=== PATIENT | female | born 1960 | race Caucasian/White ===

== ENCOUNTER → 2018-11-20 11:42 | Outpatient (CLI) | payer OTHER, SELFPAY ==
--- NOTE | 2018-11-20 | DI.US.S_ITS ---
PROCEDURE: US PELVIC COMPLETE INDICATIONS: Unspecified dyspareunia TECHNIQUE: Real-time scanning was performed of the pelvic organs, with image documentation. Additional endovaginal scanning was necessary due to incomplete visualization of the adnexal and endometrial structures by transabdominal scanning. COMPARISON: [facility], , PELVIC COMPLETE, 11/14/2016, 13:33. FINDINGS: Transabdominal scanning: Limited scanning through the kidneys shows no hydronephrosis. No pathologic free abdominal or pelvic fluid. Endovaginal scanning: Uterus: Uterus is normal in size at 6.2 x 3.0 x 4.6 cm. The endometrium measures 1.5 mm in combined thickness. Ovaries: Normal ovaries bilaterally measuring 2.3 x 0.9 x 1.5 cm on the right and 2.1 x 1.2 x 1.5 cm on the left. No adnexal masses seen. Limited assessment of the urinary bladder demonstrates bladder wall trabeculations. IMPRESSION: Urinary bladder wall trabeculations identified, otherwise no source for pelvic pain is seen. Dictated by: Rodri HIGGINS Interpreted: Earnest Ortiz MD on 11/20/2018 at 15:33 Approved by: Earnest Ortiz M.D. on 11/20/2018 at 17:54
== END ==
PROVIDERS: PCP Family Medicine; Visit Provider Family Medicine
DX: N94.10 Unspecified dyspareunia (principal); N32.89 Other specified disorders of bladder
CPT/HCPCS: 76830; 76856

== ENCOUNTER → 2020-01-14 13:53 | Outpatient (CLI) | payer OTHER, SELFPAY ==
[2020-01-15 08:23] LABS: COVID19 Sendout Not Detected (Not Detect)
== END ==
PROVIDERS: PCP Family Medicine; Visit Provider Physician Assistant
DX: J02.9 Acute pharyngitis, unspecified (principal)
CPT/HCPCS: 87070; 87635

== ENCOUNTER → 2020-01-14 14:24 | Outpatient (CLI) | payer OTHER, SELFPAY ==
--- NOTE | 2020-01-14 14:26 | DI.RAD.S_ITS ---
PROCEDURE: XR SOFT TISSUE NECK INDICATIONS: possible foreign body-fish bone TECHNIQUE: 2 views of the neck were acquired. COMPARISON: None. FINDINGS: Airway: The airway appears patent. Soft tissues: A linear hyperdensity at the base of the epiglottis/vallecular could represent small foreign body. Prevertebral soft tissues are normal in thickness. The epiglottis and aryepiglottic folds appear normal. No soft tissue gas. Bones: No suspicious bony lesions. Visualized cervical spine is normally aligned. IMPRESSION: Possible foreign body at the base of the epiglottis/vallecula. Dictated by: uLis Bojorquez M.D. on 01/14/2020 at 15:32 Approved by: Luis Bojorquez M.D. on 01/14/2020 at 15:37
== END ==
PROVIDERS: PCP Family Medicine; Referring Provider Physician Assistant; Visit Provider Physician Assistant
DX: J02.9 Acute pharyngitis, unspecified (principal); R13.10 Dysphagia, unspecified
CPT/HCPCS: 70360; 87070; 87635

== ENCOUNTER 2020-04-28 13:00 | Outpatient (RCR) | payer OTHER, SELFPAY ==
--- NOTE | 2020-04-22 17:32 | PT.OIE ---
Current Diagnoses Other chronic pain (04/28/20) Past Surgical History Status post appendectomy Status post delivery Status post delivery Status post delivery Status post dilation and curettage Status post laparoscopy Visit Care Team Role Provider Type Other Providers Referring Provider Specialty: Address: Phone: Fax: Email: Salima Tran MD Attending Provider Physician Primary Care Provider Specialty: Family Practice Address: [address] [place] [address], [id number] Email: Physical Therapy Initial Evaluation PT-OP-A Visit Information Start: 04/22/20 13:59 Freq: Status: Active Protocol: Document 04/22/20 14:00 [facility] (Rec: 04/22/20 14:08 [facility] [email or web address]) Out-Patient Physical Therapy Visit Information Visit Information Visit Type Initial Evaluation Visit Start Time 12:15 Visit Stop Time 01:00 Total Visit Minutes 45 Visit Number 1 Evaluation Information Evaluation Date 04/22/20 PT-OP-B Current Condition Start: 04/22/20 13:59 Freq: Status: Active Protocol: Document 04/22/20 14:00 [facility] (Rec: 04/22/20 14:08 [facility] [email or web address]) Current Condition History of Current Condition Onset Date 2016 Current Complaints urinary incontinence, abdominal and pelvic pain, pelvic pressure and heavin History of Current Condition Jessy is a 59 year old female who presents to physical therapy today with symptoms of urinary incontinence and pelvic pain. She notes her symptosm have worsed since she was sick and hospitalized in 2017. Since then she has felt much weaker in her core and feels this contributes to her Low back pain. She has a history of 3 C-sections and she feels that she has scar tissue that is limiting her. She will often feel radiating pain shoot across her pelvis. Jessy describes a constant urge to void and c/o pelvic pressure expecially with standing Treatment Goals Patient/Caregiver Goals Jessy reports her goals are to gain strengh of her core so that she can continue to be active and decrease her urinary leakage. Prior Functional Status Baseline Function- ADL's Independent Baseline Function- Mobility Independent Current Functional Impairments (Reported) Functional Limitations- ADL's bending and lifting activities increase leakage and pain, she has pain laying on her left side. Functional Limitations- Recreation/ Jessy is limited in long car Hobbies drives, she has difficulty exercising due to pain PT-OP-C Subjective Start: 04/22/20 13:59 Freq: Status: Active Protocol: Document 04/22/20 17:01 [facility] (Rec: 04/28/20 17:03 [facility] [email or web address]) Patient Questionnaires Pelvic Pain and Urgency/Frequency Patient Symptom Scale Pelvic Pain Score 11 OP-PT Pain Assessment Pain Assessment Grid Paper Pain Assessment Grid Completed Yes Location abdominal pain Pain Location Details abdominal pain Intensity 6 Scale Used Numeric (0 - 10) Description Radiating,Sharp,Shooting PT-OP-I Pelvic Floor Start: 04/22/20 13:59 Freq: Status: Active Protocol: Document 04/22/20 17:04 [facility] (Rec: 04/28/20 17:16 [facility] [email or web address]) Pelvic Floor Assessment Urine Urinary Symptoms Urge Sensation,Incomplete Emptying Other Urinary Symptoms urinary leakage when going from sitting to standing Leakage Size Medium Leakage Cause Cough,Exercise,Lifting,Sneeze, Urge Leaks Per Day 2 per week Voiding Frequency 6 Nocturia 0-1 Pads Used In 24 Hours 1-2 Urine Pad Type Panty Liner Pelvic Clock Pelvic Clock 12-3 Atrophy Pelvic Clock 3-6 Atrophy Contraction Ability Voluntary Contraction Weak Voluntary Relaxation Weak Manual Muscle Testing Left 2 Manual Muscle Testing Right 2 Manual Muscle Testing Anterior 1 Manual Muscle Testing Posterior 4 Muscle Endurance (Seconds) 6 Comments Pelvic Floor Comments Jessy has left sided pain to palpation over the levator ani , she has difficulty relaxing her pelvic floor following a contraction. PT-OP-K Range of Motion Start: 04/28/20 17:16 Freq: Status: Active Protocol: Document 04/22/20 17:17 [facility] (Rec: 04/28/20 17:18 [facility] [email or web address]) Hip Goniometric Range of Motion Hip ROM Limitations Hip ROM Limitations Soft Tissue Tightness Comments iliopsoas tightness bilaterally left greater than right, ROM limited in hip ER with pain at end range ER B, tightness of the piriformis and obturator internus PT-OP-M Strength Start: 04/22/20 13:59 Freq: Status: Active Protocol: Document 04/22/20 17:04 [facility] (Rec: 04/28/20 17:16 [facility] [email or web address]) Trunk Strength Trunk Manual Muscle Testing Flexion 3 Fair Core Stabilization decreased strength of the transverse abdominal muscle with decreased ability to facilitate muscle contraction Hip Strength Hip Manual Muscle Testing Right Abduction 4 Good External Rotation 4 Good Left Abduction 4 Good External Rotation 4 Good PT-OP-Q Treatments Start: 04/22/20 13:59 Freq: Status: Active Protocol: Document 04/22/20 14:09 [facility] (Rec: 04/22/20 14:10 [facility] [email or web address]) Therapeutic Exercises Supine Exercises roll outs with theraband Supine Exercise Name hip rollouts with theraband Side bilateral Reps/Minutes 3 x 10 reps iliopsoas stretch Supine Exercise Name iliopsoas stretch in karoline test position Side bilateral Reps/Minutes hold 1-2 min single knee to chest stretch Supine Exercise Name single knee to chest stretch Side bilateral Reps/Minutes hold x 30 seconds B Self-Care/Home Management Treatment Education Patient Education Home Exercise Program Other Education pt was instructed in gentle scar tissue massage over the abdominal wall PT-OP-T Assessment and Plan Start: 04/22/20 13:59 Freq: Status: Active Protocol: Document 04/22/20 17:19 [facility] (Rec: 04/28/20 17:32 [facility] [email or web address]) Physical Therapy Assessment Rehab Potential Rehabilitation Potential Good Evaluation Complexity Number of Personal Factors/Comorbidities 0 Number of Body Systems Impaired 1-2 Clinical Presentation at Evaluation Stable Impairments Impairments Activity Tolerance,Functional Activities,Posture,ROM,Soft Tissue Mobility,Strength Other Impairments urinary stress and urge incontinence Goals urinary leakage with sit to stand Impairment urinary leakage with sit to stand activitiy [employer] Goal (LTG) Jessy is able to brace with her pelvic floor prior to standing and is no longer leaking with functional activities LTG Duration 8 weeks core weakness Impairment core weakness with decreased strength of the pelvic floor/ transverse abdom Short Term Goal (STG) Jessy is given a home program for pelvic floor and transverse abdominal strengtheing STG Duration 4 weeks [facility] Goal (LTG) Jessy is able to sustain both a pelvic floor contraction as well a a transverse abdominal contraction for 10 seconds each LTG Duration 8 weeks One Impairment abdominal pain rated 6/10 that radiates across the pelvis [facility] Goal (LTG) With manual therapy and stretching for the abdominal wall Jessy reports a overall reduction with abdominal pain from 6/10 to 1-2/10 Assessment Summary Assessment Jessy is a 59 year old female presenting to PT today with chronic abdominal pain and weakness. She feels her abdominal pain initially began after her 3 deliveries. However in 2017 she was hospitalized for period of time and became very week. She notes it was after this time that her core strength further decreased. She feels she has scar tissue restrictions across her abdominal wall. Her goal is to be able to strenghen her core and help her low back by decreasing pain. Jessy also reports symptoms of urinary incotntinence with both urgency and stress incontinence. With examination today Jessy is very limited with her hip flexor length L>R. She has pain with full hip ER B. With internal pelvic floor examination she is weak in the anterior and lateral talamantes of the levator ani. She has pain on the left side following a contraction. She is tender to palpation at the obturator internus B. I started Jessy today with stretches for her iliopsoas as well as transverse abdmonial and pelvic floor activation. She tolerated this well. She is a good candidate for PT Physical Therapy Plan Frequency and Duration Frequency of Treatment 1x/Week Duration of Treatment 8 Plan of Care Start Date 04/22/20 Plan of Care End Date 06/17/20 Therapeutic Interventions Therapeutic Interventions Home Exercise Program,Manual Therapy,Neuromuscular Re- education,Patient/Caregiver Education,Self-Care/Home Management,Soft Tissue Mobilization,Therapeutic Exercises Modalities Biofeedback Next Visit Focus/Plan Next Note Type Treatment Note Next Visit Plan Review stretches and ther ex given today and begin EMG biofeedback next visit
--- NOTE | 2020-04-28 17:33 | PT.OPPOC ---
Physical, Occupational & Speech Therapy At [facility] Current Diagnoses Other chronic pain (04/28/20) Visit Care Team Role Provider Type Other Providers Referring Provider Specialty: Address: Phone: Fax: Email: Salima Tran MD Attending Provider Physician Primary Care Provider Specialty: Family Practice Address: [address] [place] [address], [id number] Email: Plan Of Care PT-OP-T Assessment and Plan Start: 04/22/20 13:59 Freq: Status: Active Protocol: Document 04/22/20 17:19 [facility] (Rec: 04/28/20 17:32 [facility] [email or web address]) Physical Therapy Assessment Rehab Potential Rehabilitation Potential Good Evaluation Complexity Number of Personal Factors/Comorbidities 0 Number of Body Systems Impaired 1-2 Clinical Presentation at Evaluation Stable Impairments Impairments Activity Tolerance,Functional Activities,Posture,ROM,Soft Tissue Mobility,Strength Other Impairments urinary stress and urge incontinence Goals urinary leakage with sit to stand Impairment urinary leakage with sit to stand activity [employer] Goal (LTG) Jessy is able to brace with her pelvic floor prior to standing and is no longer leaking with functional activities LTG Duration 8 weeks core weakness Impairment core weakness with decreased strength of the pelvic floor/ transverse abdominal muscles Short Term Goal (STG) Jessy is given a home program for pelvic floor and transverse abdominal strengthening STG Duration 4 weeks [employer] Goal (LTG) Jessy is able to sustain both a pelvic floor contraction as well a a transverse abdominal contraction for 10 seconds each LTG Duration 8 weeks One Impairment abdominal pain rated 6/10 that radiates across the pelvis [employer] Goal (LTG) With manual therapy and stretching for the abdominal wall Jessy reports a overall reduction with abdominal pain from 6/10 to 1-2/10 Assessment Summary Assessment Jessy is a 59 year old female presenting to PT today with chronic abdominal pain and weakness. She feels her abdominal pain initially began after her 3 deliveries. However in 2017 she was hospitalized for period of time and became very week. She notes it was after this time that her core strength further decreased. She feels she has scar tissue restrictions across her abdominal wall. Her goal is to be able to strengthen her core and help her low back by decreasing pain. Jessy also reports symptoms of urinary incontinence with both urgency and stress incontinence. With examination today Jessy is very limited with her hip flexor length L>R. She has pain with full hip ER B. With internal pelvic floor examination she is weak in the anterior and lateral talamantes of the levator ani. She has pain on the left side following a contraction. She is tender to palpation at the obturator internus B. I started Jessy today with stretches for her iliopsoas as well as transverse abdominal and pelvic floor activation. She tolerated this well. She is a good candidate for PT Physical Therapy Plan Frequency and Duration Frequency of Treatment 1x/Week Duration of Treatment 8 Plan of Care Start Date 04/22/20 Plan of Care End Date 06/17/20 Therapeutic Interventions Therapeutic Interventions Home Exercise Program,Manual Therapy,Neuromuscular Re- education,Patient/Caregiver Education,Self-Care/Home Management,Soft Tissue Mobilization,Therapeutic Exercises Modalities Biofeedback Next Visit Focus/Plan Next Note Type Treatment Note Next Visit Plan Review stretches and ther ex given today and begin EMG biofeedback next visit Plan of Care Dates Plan of Care Start Date 04/22/20 Plan of Care End Date 06/17/20 Electronically Signed by: Nahomy Camacho, PT 04/28/20 0822 Please Sign and Return: I have reviewed this Plan of Care and certify that the skilled therapy services above are required to meet the patient?s needs. Physician Signature Date Printed Name and Credentials Clinical Instructor Signature Printed Name and Credentials
--- NOTE | 2020-04-28 17:41 | PT.OTN ---
Current Diagnoses Other chronic pain (04/28/20) Physical Therapy Treatment Note PT-OP-A Visit Information Start: 04/22/20 13:59 Freq: Status: Active Protocol: Document 04/28/20 17:35 [facility] (Rec: 04/28/20 17:41 [facility] [email or web address]) Out-Patient Physical Therapy Visit Information Visit Information Visit Type Treatment Note Visit Start Time 13:00 Visit Stop Time 13:45 Total Visit Minutes 45 Visit Number 2 Evaluation Information Evaluation Date 04/22/20 PT-OP-B Current Condition Start: 04/22/20 13:59 Freq: Status: Active Protocol: Document 04/22/20 14:00 AMH (Rec: 04/22/20 14:08 [facility] [email or web address]) Current Condition History of Current Condition Onset Date 2016 Current Complaints urinary incontinence, abdominal and pelvic pain, pelvic pressure and heavin History of Current Condition Jessy is a 59 year old female who presents to physical therapy today with symptoms of urinary incontinence and pelvic pain. She notes her symptosm have worsed since she was sick and hospitalized in 2016. Since then she has felt much weaker in her core and feels this contributes to her Low back pain. She has a history of 3 C-sections and she feels that she has scar tissue that is limiting her. She will often feel radiating pain shoot across her pelvis. Jessy describes a constant urge to void and c/o pelvic pressure expecially with standing Treatment Goals Patient/Caregiver Goals Jessy reports her goals are to gain strengh of her core so that she can continue to be active and decrease her urinary leakage. Prior Functional Status Baseline Function- ADL's Independent Baseline Function- Mobility Independent Current Functional Impairments (Reported) Functional Limitations- ADL's bending and lifting activities increase leakage and pain, she has pain laying on her left side. Functional Limitations- Recreation/ Jessy is limited in long car Hobbies drives, she has difficulty exercising due to pain PT-OP-C Subjective Start: 04/22/20 13:59 Freq: Status: Active Protocol: Document 04/28/20 17:35 AM[facility] (Rec: 04/28/20 17:41 [facility] [email or web address]) OP-PT Subjective Patient Comments Patient Comments Jessy reports she has been doing the hip flexor stretches and she feels like they are really helping her. PT-OP-I Pelvic Floor Start: 04/22/20 13:59 Freq: Status: Active Protocol: Document 04/22/20 17:04 [facility] (Rec: 04/28/20 17:16 [facility] [email or web address]) Pelvic Floor Assessment Urine Urinary Symptoms Urge Sensation,Incomplete Emptying Other Urinary Symptoms urinary leakage when going from sitting to standing Leakage Size Medium Leakage Cause Cough,Exercise,Lifting,Sneeze, Urge Leaks Per Day 2 per week Voiding Frequency 6 Nocturia 0-1 Pads Used In 24 Hours 1-2 Urine Pad Type Panty Liner Pelvic Clock Pelvic Clock 12-3 Atrophy Pelvic Clock 3-6 Atrophy Contraction Ability Voluntary Contraction Weak Voluntary Relaxation Weak Manual Muscle Testing Left 2 Manual Muscle Testing Right 2 Manual Muscle Testing Anterior 1 Manual Muscle Testing Posterior 4 Muscle Endurance (Seconds) 6 Comments Pelvic Floor Comments Jessy has left sided pain to palpation over the levator ani , she has difficulty relaxing her pelvic floor following a contraction. PT-OP-K Range of Motion Start: 04/28/20 17:16 Freq: Status: Active Protocol: Document 04/22/20 17:17 [facility] (Rec: 04/28/20 17:18 [facility] [email or web address]) Hip Goniometric Range of Motion Hip ROM Limitations Hip ROM Limitations Soft Tissue Tightness Comments iliopsoas tightness bilaterally left greater than right, ROM limited in hip ER with pain at end range ER B, tightness of the piriformis and obturator internus PT-OP-M Strength Start: 04/22/20 13:59 Freq: Status: Active Protocol: Document 04/22/20 17:04 [facility] (Rec: 04/28/20 17:16 [facility] [email or web address]) Trunk Strength Trunk Manual Muscle Testing Flexion 3 Fair Core Stabilization decreased strength of the transverse abdominal muscle with decreased ability to facilitate muscle contraction Hip Strength Hip Manual Muscle Testing Right Abduction 4 Good External Rotation 4 Good Left Abduction 4 Good External Rotation 4 Good PT-OP-Q Treatments Start: 04/22/20 13:59 Freq: Status: Active Protocol: Document 04/28/20 17:35 [facility] (Rec: 04/28/20 17:41 [facility] [email or web address]) Therapeutic Exercises Supine Exercises ball squeeze with pelvic floor contraction Supine Exercise Name ball squeeze with pelvic floor contraction Reps/Minutes 10 reps x 5 sec hold roll outs with theraband Supine Exercise Name hip rollouts with theraband Side bilateral Reps/Minutes 3 x 10 reps iliopsoas stretch Supine Exercise Name iliopsoas stretch in karoline test position Side bilateral Reps/Minutes hold 1-2 min single knee to chest stretch Supine Exercise Name single knee to chest stretch Side bilateral Reps/Minutes hold x 30 seconds B Other Exercises quadruped cat cow Reps/Minutes x 10 quadruped TA Reps/Minutes x 10 reps Neuro Re-Education Treatment Other Activities EMG biofeedback Details EMG biofeedback for the pelvci floor neuro re-education Comments pt tolerated well, she demonstrated some muscle guarding and spasms initially but this did improve as she worked on contract relax 10 second hold and 10 second realxation PT-OP-T Assessment and Plan Start: 04/22/20 13:59 Freq: Status: Active Protocol: Document 04/28/20 17:35 [facility] (Rec: 04/28/20 17:41 [facility] [email or web address]) Physical Therapy Assessment Assessment Summary Assessment stretches are working well for Jessy, today we worked on core facilitation bot for TA adn pelvic floor. EMG biofeedback was initiated with average of 13.4 and resting tone of 2.7 max contraction of 47.8 Physical Therapy Plan Frequency and Duration Frequency of Treatment 1x/Week Duration of Treatment 8 Plan of Care Start Date 04/22/20 Plan of Care End Date 06/17/20 Therapeutic Interventions Therapeutic Interventions Home Exercise Program,Manual Therapy,Neuromuscular Re- education,Patient/Caregiver Education,Self-Care/Home Management,Soft Tissue Mobilization,Therapeutic Exercises Modalities Biofeedback Next Visit Focus/Plan Next Note Type Treatment Note Next Visit Plan Begin scar tissue massage over the abdomen and continue to progress strengthening.
--- NOTE | 2020-06-11 17:35 | PT.OPDS ---
Current Diagnoses Other chronic pain (04/28/20) Visit Care Team Role Provider Type Other Providers Referring Provider Specialty: Address: Phone: Fax: Email: Salima Tran MD Attending Provider Physician Primary Care Provider Specialty: Family Practice [place]: [place], [address] Email: Visit Number Visit Number 2 Discharge Summary PT-OP-B Current Condition Start: 04/22/20 13:59 Freq: Status: Active Protocol: Document 04/22/20 14:00 AMH (Rec: 04/22/20 14:08 AMH [email or web address]) Current Condition History of Current Condition Onset Date 2017 Current Complaints urinary incontinence, abdominal and pelvic pain, pelvic pressure and heavin History of Current Condition Jessy is a 59 year old female who presents to physical therapy today with symptoms of urinary incontinence and pelvic pain. She notes her symptosm have worsed since she was sick and hospitalized in 2017. Since then she has felt much weaker in her core and feels this contributes to her Low back pain. She has a history of 3 C-sections and she feels that she has scar tissue that is limiting her. She will often feel radiating pain shoot across her pelvis. Jessy describes a constant urge to void and c/o pelvic pressure expecially with standing Treatment Goals Patient/Caregiver Goals Jessy reports her goals are to gain strengh of her core so that she can continue to be active and decrease her urinary leakage. Prior Functional Status Baseline Function- ADL's Independent Baseline Function- Mobility Independent Current Functional Impairments (Reported) Functional Limitations- ADL's bending and lifting activities increase leakage and pain, she has pain laying on her left side. Functional Limitations- Recreation/ Jessy is limited in long car Hobbies drives, she has difficulty exercising due to pain PT-OP-C Subjective Start: 04/22/20 13:59 Freq: Status: Active Protocol: Document 04/28/20 17:35 AMH (Rec: 04/28/20 17:41 AMH [email or web address]) OP-PT Subjective Patient Comments Patient Comments Jessy reports she has been doing the hip flexor stretches and she feels like they are really helping her. PT-OP-I Pelvic Floor Start: 04/22/20 13:59 Freq: Status: Active Protocol: Document 04/22/20 17:04 AMH (Rec: 04/28/20 17:16 AMH [email or web address]) Pelvic Floor Assessment Urine Urinary Symptoms Urge Sensation,Incomplete Emptying Other Urinary Symptoms urinary leakage when going from sitting to standing Leakage Size Medium Leakage Cause Cough,Exercise,Lifting,Sneeze, Urge Leaks Per Day 2 per week Voiding Frequency 6 Nocturia 0-1 Pads Used In 24 Hours 1-2 Urine Pad Type Panty Liner Pelvic Clock Pelvic Clock 12-3 Atrophy Pelvic Clock 3-6 Atrophy Contraction Ability Voluntary Contraction Weak Voluntary Relaxation Weak Manual Muscle Testing Left 2 Manual Muscle Testing Right 2 Manual Muscle Testing Anterior 1 Manual Muscle Testing Posterior 4 Muscle Endurance (Seconds) 6 Comments Pelvic Floor Comments Jessy has left sided pain to palpation over the levator ani , she has difficulty relaxing her pelvic floor following a contraction. PT-OP-K Range of Motion Start: 04/28/20 17:16 Freq: Status: Active Protocol: Document 04/22/20 17:17 AMH (Rec: 04/28/20 17:18 AMH [email or web address]) Hip Goniometric Range of Motion Hip ROM Limitations Hip ROM Limitations Soft Tissue Tightness Comments iliopsoas tightness bilaterally left greater than right, ROM limited in hip ER with pain at end range ER B, tightness of the piriformis and obturator internus PT-OP-M Strength Start: 04/22/20 13:59 Freq: Status: Active Protocol: Document 04/22/20 17:04 AMH (Rec: 04/28/20 17:16 AMH [email or web address]) Trunk Strength Trunk Manual Muscle Testing Flexion 3 Fair Core Stabilization decreased strength of the transverse abdominal muscle with decreased ability to facilitate muscle contraction Hip Strength Hip Manual Muscle Testing Right Abduction 4 Good External Rotation 4 Good Left Abduction 4 Good External Rotation 4 Good PT-OP-T Assessment and Plan Start: 04/22/20 13:59 Freq: Status: Active Protocol: Document 06/11/20 17:34 AMH (Rec: 06/11/20 17:35 AMH [email or web address]) Physical Therapy Assessment Progress Towards Goals Progress Comments Jessy has no showed for her appointment 3 visits in a row. A message was left for her on her voicemail at home. She will be discharged at this time Assessment Summary Assessment DC PT due to no show the last 3 visits Physical Therapy Plan Discharge Physical Therapy Discharge Reasons No Longer Attending PT Discharge Comments pt not showing up for her scheduled visits
== END 2020-10-19 12:07 ==
LOC: PHYS 13:00
PROVIDERS: PCP Family Medicine; Visit Provider Family Medicine
DX: G89.29 Other chronic pain (principal)
CPT/HCPCS: 97110; 97112; 97161

== ENCOUNTER 2021-01-18 10:31 | Emergency (ER) | payer OTHER, SELFPAY ==
[2021-01-18 10:35] VITALS: BP 121/82; PULSE 73; RESP 14; TEMP 36.2; O2SAT 97
--- NOTE | 2021-01-18 10:40 | DI.RAD.S_ITS ---
PROCEDURE: XR CHEST 1V INDICATIONS: chest pain TECHNIQUE: One view of the chest was acquired. COMPARISON: [facility], CR, CHEST 1 VIEW, 03/05/2016, 12:44. [facility], CT, THORAX WITH CONTRAST, 03/24/2016, 12:23. [facility], CT, PE STUDY (CTA CHEST), 09/12/2016, 18:58. FINDINGS: Surgical changes and devices: None. Lungs and pleura: There are embolization coils in both lower lobes. Lungs are clear. No pleural effusions or pneumothorax. Mediastinum: Mediastinal contours appear normal. Heart size is normal. Bones and chest wall: No suspicious bony lesions. Overlying soft tissues appear unremarkable. IMPRESSION: No acute cardiopulmonary disease. Dictated by: Luis Bojorquez M.D. on 01/18/2021 at 10:58 Approved by: Luis Bojorquez M.D. on 01/18/2021 at 11:01
[2021-01-18 11:03] VITALS: PULSE 72; RESP 18; O2SAT 97
[2021-01-18 11:06] LABS: Add Manual Diff / Slide Review NO; Basophils Absolute Auto 0 /uL (0-100); Basophils Percent Auto 0.8 % (0-2); Eosinophils Absolute Auto 100 /uL (0-450); Hematocrit 39.8 % (36-46); Hemoglobin 13.1 g/dL (12.0-16.0); Lymphocytes Absolute Auto 1800 /uL (1100-4500); Lymphocytes Percent Auto 29.6 % (25-40); Mean Corpuscular Hemoglobin 30.8 PG (26-34); Mean Corpuscular Volume 93.3 fL (80-100); Monocytes Absolute Auto 300 /uL (0-900); Monocytes Percent Auto 5.7 % (3-14); Neutrophils Absolute Auto 3800 /uL (1500-7000); Neutrophils Percent Auto 62.9 % (50-75); Platelet Count 232 X10^3/uL (150-400); Red Blood Cell Count 4.27 X10^6/uL (4.0-5.2); Red Cell Distribution Width 13.2 % (11.6-14.8); White Blood Cell Count 6.1 X10^3/uL (4.5-11.0)
[2021-01-18 11:13] LABS: Alanine Aminotransferase 18 IU/L (<35); Albumin 3.9 g/dL (3.5-5.0); Albumin Globulin Ratio 1.3 (1.0-2.8); Alkaline Phosphatase 71 U/L (38-126); Aspartate Aminotransferase 22 IU/L (14-36); BUN Creatinine Ratio 18.6 (6-22); Bilirubin Total 0.6 mg/dL (0.2-1.3); Blood Urea Nitrogen 11 mg/dL (7-17); Calcium 9.1 mg/dL (8.4-10.2); Carbon Dioxide 26 mmol/L (22-32); Chloride 107 mmol/L (98-107); Creatine Kinase 30 U/L (30-135); Estimated Glomerular Filt Rate > 60.0 mL/min (>60); Glucose 125 mg/dL (70-100); HEMOLYSIS < 15 (0-50); Lipase 84 U/L (23-300); Magnesium 2.2 mg/dL (1.6-2.3); Potassium 4.3 mmol/L (3.4-5.1); Sodium 137 mmol/L (137-145); Total Protein 6.9 g/dL (6.3-8.2)
[2021-01-18 11:24] LABS: Troponin I < 0.012 ng/mL (0.01-0.034)
[2021-01-18 11:30] VITALS: PULSE 71; RESP 18; O2SAT 95
[2021-01-18 12:00] VITALS: PULSE 71; RESP 18; O2SAT 95
[2021-01-18 12:30] VITALS: BP 99/61; PULSE 70; RESP 31; O2SAT 97
--- NOTE | 2021-01-18 12:36 | ED_ITS ---
HPI - Chest Pain General Chief Complaint: Chest Pain Stated Complaint: radiating pain, tinges in arm, chest pain Time Seen by Provider: 01/18/21 12:04 Source: patient Mode of arrival: Ambulatory Limitations: no limitations History of Present Illness HPI narrative: patient is a 60-year-old female who is presenting with right- sided chest pain ongoing for the last couple of days. Her every time she clean stretches moves his sometimes breeze. It did start in her back and is now coming around have her front is in her breast. Initially worried about breast cancer. she denies any shortness of breath. She took some Advil or Aleve he did not have any relief with that. No prior history of coronary artery disease. Onset (ago): day(s) Pain location: right chest Relieving factors: movement and rest Exacerbating factors: movement Related Data Home Medications Medication Instructions Recorded Confirmed estradiol 0.05 mg/24 hr weekly 1 patch TOPICAL WEEKLY 01/18/21 01/18/21 transdermal patch Allergies Allergy/AdvReac Type Severity Reaction Status Date / Time sulfamethoxazole AdvReac Severe Passout, Verified 01/18/21 10:40 [From Bactrim] memory issues. trimethoprim [From Bactrim] AdvReac Severe Passout, Verified 01/18/21 10:40 memory issues. Review of Systems Review of Systems Narrative: GENERAL: Denies chills, fatigue, malaise, fever, sweats, travel HEENT: Denies sinus pain, ear pain, sore throat, difficulty swallowing, neck pain RESPIRATORY: Denies dyspnea, cough, wheezing, hemoptysis, sputum. CARDIOVASCULAR: See HPI GASTROINTESTINAL: Denies nausea, vomiting, abdominal pain, diarrhea, constipation, melena. : Denies dysuria, frequency, incontinence, hematuria, urinary retention, flank pain. MUSCULOSKELETAL: Denies weakness, joint pain, or bony pain SKIN: No rash, no erythema, no pruritus NEUROLOGIC: Denies weakness, dizziness, headache, numbness, change in speech, confusion PSYCHIATRIC: No concerning psychosocial issues. 12 point review of systems is negative except for those stated above and HPI Patient History Surgical History (Updated 10/31/17 @ 06:04 by Conversion Provider) Status post appendectomy Status post delivery Status post delivery Status post delivery Status post dilation and curettage Status post laparoscopy Family History (Updated 05/18/15 @ 00:00 by Conversion Provider) Mother Cancer Diabetes mellitus Heart disease Hypertension Mental health problem Stroke Social History Smoking Status: Never smoker Smoking Status: Never smoker alcohol intake frequency: 0-2 drinks per day Substance Use Type: marijuana Exam Initial Vital Signs Initial Vital Signs: Vital Signs Temperature 97.1 F L 01/18/21 10:35 Pulse Rate 73 01/18/21 10:35 Respiratory Rate 14 01/18/21 10:35 Blood Pressure 121/82 01/18/21 10:35 Pulse Oximetry 97 01/18/21 10:35 GENERAL: alert well-appearing 60-year-old female HEENT: Head atraumatic,EOMI, pupils reactive, face symmetric, [moist] mucous membranes CARDIOVASCULAR: Regular rate and rhythm without murmurs, rubs or gallops. RESPIRATORY: Breath sounds equal bilaterally, no wheezes rales or rhonchi. Pain between right ribs 4 and 5 pinpoint reproducible to touch. No rash vesicles or erythema but is obviously tender when I push it ABDOMEN: Soft, nontender. Normoactive bowel sounds all 4 quadrants. No guarding or rebound. EXTREMITIES: Normal range of motion, no clubbing or edema. Neurovascularly intact NEUROLOGICAL: Alert and oriented x4.Normal gait and speech. SKIN: Warm, dry, no laceration, no petechiae, no rashes or lesions. Scores HEART Score Heart Score history: Slightly Suspicious Heart Score EKG: Normal Heart Score Age: 45-64 years old Heart Score risk factors: No known risk factors Heart Score troponin: < or = to normal limit Heart Score Total: 1 Course Orders Ordered: ED Orders 01/18/21 10:40 XR chest 1V Stat EKG-12 Lead Stat 01/18/21 10:55 Complete Blood Count AUTO DIFF Stat Comprehensive Metabolic Panel Stat Lipase Stat Magnesium Stat TSH w/ Reflex to FT4 Stat Troponin & CK Cardiac Panel Stat Vital Signs Vital signs: Vital Signs - 8 hr 01/18/21 10:35 Temperature 97.1 F L Pulse Rate 73 Respiratory Rate 14 Blood Pressure 121/82 Pulse Oximetry 97 MDM - Chest Pain Lab Data Result diagrams: 01/18/21 10:55 01/18/21 10:55 Labs: Lab Results 01/18/21 01/18/21 01/18/21 Range/Units 10:55 10:55 10:55 WBC 6.1 (4.5-11.0) X10^3/uL RBC 4.27 (4.0-5.2) X10^6/uL Hgb 13.1 (12.0-16.0) g/dL Hct 39.8 (36-46) % MCV 93.3 (80-100) fL MCH 30.8 (26-34) PG MCHC 33.0 (30-36) % RDW 13.2 (11.6-14.8) % Plt Count 232 (150-400) X10^3/uL Neut % (Auto) 62.9 (50-75) % Lymph % (Auto) 29.6 (25-40) % [place] % (Auto) 5.7 (3-14) % Eos % (Auto) 1.0 L (2-4) % Baso % (Auto) 0.8 (0-2) % Neut # (Auto) 3800 (1498-8209) /uL Lymph # (Auto) 1800 (3177-4425) /uL [place] # (Auto) 300 (0-900) /uL Eos # (Auto) 100 (0-450) /uL Baso # (Auto) 0 (0-100) /uL Sodium 137 (137-145) mmol/L Potassium 4.3 (3.4-5.1) mmol/L Chloride 107 (98-107) mmol/L Carbon Dioxide 26 (22-32) mmol/L BUN 11 (7-17) mg/dL Creatinine 0.59 (0.52-1.04) mg/dL Estimated GFR > 60.0 (>60) mL/min BUN/Creatinine Ratio 18.6 (6-22) Glucose 125 H (70-100) mg/dL Calcium 9.1 (8.4-10.2) mg/dL Magnesium 2.2 Cancelled (1.6-2.3) mg/dL Total Bilirubin 0.6 (0.2-1.3) mg/dL AST 22 (14-36) IU/L ALT 18 (<35) IU/L Alkaline Phosphatase 71 (38-126) U/L Total Creatine Kinase 30 (30-135) U/L CK-MB (CK-2) TNP CK-MB (CK-2) Rel Index TNP Troponin I < 0.012 (0.01-0.034) ng/mL Total Protein 6.9 (6.3-8.2) g/dL Albumin 3.9 (3.5-5.0) g/dL Globulin 3.0 (1.7-4.1) g/dL Albumin/Globulin Ratio 1.3 (1.0-2.8) Lipase 84 (23-300) U/L TSH (0.47-4.68) uIU/mL 01/18/21 Range/Units 10:55 WBC (4.5-11.0) X10^3/uL RBC (4.0-5.2) X10^6/uL Hgb (12.0-16.0) g/dL Hct (36-46) % MCV (80-100) fL MCH (26-34) PG MCHC (30-36) % RDW (11.6-14.8) % Plt Count (150-400) X10^3/uL Neut % (Auto) (50-75) % Lymph % (Auto) (25-40) % [place] % (Auto) (3-14) % Eos % (Auto) (2-4) % Baso % (Auto) (0-2) % Neut # (Auto) (1135-6721) /uL Lymph # (Auto) (4446-1975) /uL [place] # (Auto) (0-900) /uL Eos # (Auto) (0-450) /uL Baso # (Auto) (0-100) /uL Sodium (137-145) mmol/L Potassium (3.4-5.1) mmol/L Chloride (98-107) mmol/L Carbon Dioxide (22-32) mmol/L BUN (7-17) mg/dL Creatinine (0.52-1.04) mg/dL Estimated GFR (>60) mL/min BUN/Creatinine Ratio (6-22) Glucose (70-100) mg/dL Calcium (8.4-10.2) mg/dL Magnesium (1.6-2.3) mg/dL Total Bilirubin (0.2-1.3) mg/dL AST (14-36) IU/L ALT (<35) IU/L Alkaline Phosphatase (38-126) U/L Total Creatine Kinase (30-135) U/L CK-MB (CK-2) CK-MB (CK-2) Rel Index Troponin I (0.01-0.034) ng/mL Total Protein (6.3-8.2) g/dL Albumin (3.5-5.0) g/dL Globulin (1.7-4.1) g/dL Albumin/Globulin Ratio (1.0-2.8) Lipase (23-300) U/L TSH 1.80 (0.47-4.68) uIU/mL Imaging Data Chest x-ray: Radiologist's Impression: PROCEDURE: XR CHEST 1V INDICATIONS: chest pain TECHNIQUE: One view of the chest was acquired. COMPARISON: [facility], CR, CHEST 1 VIEW, 03/05/2016, 12:44. [facility], CT, THORAX WITH CONTRAST, 03/24/2016, 12:23. [facility], CT, PE STUDY (CTA CHEST), 09/12/2016, 18:58. FINDINGS: Surgical changes and devices: None. Lungs and pleura: There are embolization coils in both lower lobes. Lungs are clear. No pleural effusions or pneumothorax. Mediastinum: Mediastinal contours appear normal. Heart size is normal. Bones and chest wall: No suspicious bony lesions. Overlying soft tissues appear unremarkable. IMPRESSION: No acute cardiopulmonary disease. ECG Data Interpretation: normal sinus rhythm rate 77 is p.r. interval 128 QRS [address] changes or T-wave inversion MDM Narrative Medical decision making narrative: Patient has had pain ongoing for couple of days. It is worse with movement. It is pinpoint reproducible to touch. This is more likely a musculoskeletal injury. She has ruled out in the emergency department for cardiac and has a low heart score, Troponin EKG are all negative. Discharge Plan Departure Patient Disposition: Home Clinical Impression: Acute costochondritis Instructions: DI for Costochondritis Activity Restrictions/Additional Instructions: *You have been diagnosed with costochondritis *What to do: At this time blood work is overall reassuring. Think that your pain is probably from a pulled or strained muscle between her ribs. This can take up to a couple weeks to heal. *Continue to take medications as directed Ibuprofen 600 mg every 6-8 hours if needed for lnwl-bj-[id number] pain *Follow up with your primary care provider in 2-3 days *Return to ER if you should have increasing pain, shortness of breath, fever or any new, worsening or concerning symptoms Prescriptions: No Action estradiol 0.05 mg/24 hr patch weekly 1 patch topical WEEKLY RF: 0 Referrals: [facility] [Outside] Salima Tran MD [Primary Care Provider] -
== END 2021-01-18 12:50 | disposition home or self-care (01) ==
PROVIDERS: Emergency Provider Emergency Medicine; PCP Family Medicine
DX: M94.0 Chondrocostal junction syndrome [Tietze] (principal)
CPT/HCPCS: 36415; 71045; 80053; 82550; 83690; 83735; 84443; 84484; 85025; 93005; 93010; 99284